=== PATIENT | female | born 1990 | race Caucasian/White ===

== ENCOUNTER 2016-05-18 20:07 | Emergency (ER) | payer BC ==
[2016-05-18] MEDS ORDERED: IPRATROPIUM/ALBUTEROL 3 ML NEB INH STA (21:35)
[2016-05-18] MEDS ORDERED: predniSONE 20 MG TABLET PO STA (21:35)
[2016-05-18] MEDS ORDERED: predniSONE 20 MG TABLET ONE (21:35)
[2016-05-18] MEDS ORDERED: IPRATROPIUM/ALBUTEROL 3 ML NEB INH ONE (21:52)
== END 2016-05-18 23:04 | disposition home or self-care (01) ==
DX: J45.41 Moderate persistent asthma with (acute) exacerbation (principal); R03.0 Elevated blood-pressure reading, without diagnosis of hypertension
CPT/HCPCS: 94640; 99283; 99284; J7512; J7620

== ENCOUNTER 2022-04-07 09:53 | Outpatient (CLI) | payer OTHER | END 2022-04-07 09:54 | disposition critical access hospital (66) | LOC: EMS 09:53 | DX: R51.9 Headache, unspecified (principal); R11.0 Nausea; V58.6XXA Passenger in pick-up truck or van injured in noncollision transport accident in traffic accident, initial encounter; Y92.414 Local residential or business street as the place of occurrence of the external cause | CPT/HCPCS: A0425; A0429 ==

== ENCOUNTER 2022-04-07 10:31 | Emergency (ER) | payer BC, MEDICAID, OTHER ==
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
[2022-04-07] MEDS ORDERED: ACETAMINOPHEN 325 MG TABLET PO STA (11:07)
[2022-04-07] MEDS ORDERED: IBUPROFEN 600 MG TABLET PO STA (11:07)
[2022-04-07 12:09] VITALS: BP 112/71
== END 2022-04-07 12:15 | disposition home or self-care (01) ==
LOC: EDUNIT# → ED 10:31
DX: S00.93XA Contusion of unspecified part of head, initial encounter (principal); S39.012A Strain of muscle, fascia and tendon of lower back, initial encounter; S06.0X0A Concussion without loss of consciousness, initial encounter; V57.6XXA Passenger in pick-up truck or van injured in collision with fixed or stationary object in traffic accident, initial encounter; Y93.89 Activity, other specified; Y92.410 Unspecified street and highway as the place of occurrence of the external cause
CPT/HCPCS: 99283; A9270